=== PATIENT | female | born 2000 | race African-American/Black ===

== ENCOUNTER → 2023-03-16 | Outpatient (CLI) | payer OTHER ==
--- NOTE | 2023-03-16 14:22 | US ---
EXAMINATION TYPE: US OB >= 14 wk fetus DATE OF EXAM: 03/16/2023 COMPARISON: None CLINICAL INDICATION: Female, 22 years old with history of Z34.90 ENCNTR FOR SUPRVSN OF NORMAL PREGNAN CY; No scans for this pregnacy. Hx Bleeding first few months. A1 TECHNIQUE: GESTATIONAL AGE / DATING Physician Established: (21weeks/3 days) EDC: 07/24/2023 Dates by Current Scan: (21weeks/0 days) EDC: 07/27/2023 SURVEY IUP: Single PLACENTA: Anterior PREVIA: No Previa REMBERTO: 15.9 CERVICAL LENGTH (transabdominal: norm > 3.0cm): 3.6 cm BIOMETRY PRESENTATION: Cephalic LIE: Cephalic back up BPD: 5.1 cm 21weeks / 3 days HC: 19.5 cm 21weeks / 5 days AC: 16.3 cm 21weeks / 2 days FL: 3.5cm 21weeks / 0 days ESTIMATED WEIGHT IN GRAMS: 407 grams ESTIMATED WEIGHT IN LBS/OZ: 0 lbs. 14oz. WEIGHT PERCENTAGE BASED ON ESTABLISHED DATES: 32.9% HC/AC: 1.2 Normal FL/AC: 21.4 Normal HEART RATE: 149 bpm RHYTHM: Normal Unremarkable anatomy - Eclipse measurements not working IMPRESSION: 1. Single intrauterine gestation estimated at 21 weeks 0 days gestation based on current ultrasound m easurements. Cardiac activity average 40 bpm.
== END | disposition home or self-care (01) ==
LOC: RADUSWWP 12:30
PROVIDERS: ATTEND Family Medicine
DX: O09.32 Supervision of pregnancy with insufficient antenatal care, second trimester (principal); O99.012 Anemia complicating pregnancy, second trimester; Z3A.21 21 weeks gestation of pregnancy
CPT/HCPCS: 76805